=== PATIENT | female | born 1985 | race Caucasian/White ===

== ENCOUNTER 2018-11-22 08:16 | Day surgery (SDC) | payer OTHER ==
[~2018-11-22 08:16] MED LIST: Lactated Ringers 1,000 ML IV SCH
--- NOTE | 2018-11-22 08:57 | PCM.PREANE ---
Preanesthetic Assessment - Anesthesia/Transfusion/Family Hx Anesthesia History: Prior Anesthesia Without Reaction Family History of Anesthesia Reaction: No Transfusion History: No Prior Transfusion(s) Intubation History: Unknown - Review of Systems General: No Symptoms Pulmonary: No Symptoms Cardiovascular: No Symptoms Gastrointestinal: No Symptoms Neurological: No Symptoms Other: Reports: None - Physical Assessment Height: 5 ft 8.5 in Weight: 62.596 kg ASA Class: 2 Mental Status: Alert & Oriented x3 Airway Class: Mallampati = 2 Dentition: Reports: Normal Dentition Thyro-Mental Finger Breadths: 3 Mouth Opening Finger Breadths: 3 ROM/Head Extension: Full Lungs: Clear to Auscultation, Normal Respiratory Effort Cardiovascular: Regular Rate, Regular Rhythm - Lab Values: Laboratory Last Values WBC 7.88 K/uL (4.0-11.0) 11/22/18 08:46 RBC 4.69 M/uL (4.30-5.90) 11/22/18 08:46 Hgb 15.0 g/dL (12.0-16.0) 11/22/18 08:46 Hct 44.3 % (36.0-46.0) 11/22/18 08:46 MCV 94.5 fL (80.0-98.0) 11/22/18 08:46 MCH 32.0 pg (27.0-32.0) 11/22/18 08:46 MCHC 33.9 g/dL (31.0-37.0) 11/22/18 08:46 RDW Std Deviation 49.9 fl (28.0-62.0) 11/22/18 08:46 RDW Coeff of Aditya 15 % (11.0-15.0) 11/22/18 08:46 Plt Count 285 K/uL (150-400) 11/22/18 08:46 MPV 10.50 fL (7.40-12.00) 11/22/18 08:46 Nucleated RBC % 0.0 /100WBC 11/22/18 08:46 Nucleated RBCs # 0 K/uL 11/22/18 08:46 - Allergies Allergies/Adverse Reactions: Allergies Allergy/AdvReac Type Severity Reaction Status Date / Time No Known Allergies Allergy Verified 11/18/18 16:51 - Blood Blood Available: No - Anesthesia Plan Pre-Op Medication Ordered: None - Acknowledgements Anesthesia Type Planned: General Anesthesia Pt an Appropriate Candidate for the Planned Anesthesia: Yes Alternatives and Risks of Anesthesia Discussed w Pt/Guardian: Yes Pt/Guardian Understands and Agrees with Anesthesia Plan: Yes PreAnesthesia Questionnaire HEENT History: Reports: Other (See Below) Other HEENT History: 1 wisdom tooth removed under local anesthesia Gastrointestinal History: Reports: Hemorrhoids 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 [No Known Home Meds] 11/18/18 [History] - CURRENT (IN HOUSE) MEDS Current Meds: Current Medications Lactated Ringer's (Ringers, Lactated) 1,000 mls @ 100 mls/hr IV ASDIRECTED DENISA
[2018-11-22] MEDS ORDERED: Bupivacaine 0.25% 10 ML SDV ONE (08:58)
[2018-11-22] MEDS ORDERED: Fluorescein 5 ML Vial ONE (09:00)
[2018-11-22] MEDS ORDERED: Glycopyrrolate 0.2 MG/ML SDV ONE ×2 (10:02→11:50)
[2018-11-22] MEDS ORDERED: Propofol 200 MG/20 ML SDV ONE (10:02)
[2018-11-22] MEDS ORDERED: Lidocaine 2% 5 ML SDV ONE (10:02)
[2018-11-22] MEDS ORDERED: Neostigmine Methylsulfate 1 MG/ML 5 ML Syringe ONE (10:02)
[2018-11-22] MEDS ORDERED: Ondansetron 4 MG/2 ML SDV ONE (10:02)
[2018-11-22] MEDS ORDERED: Midazolam 1 MG/ML 2 ML SDV ONE (10:03)
[2018-11-22] MEDS ORDERED: fentaNYL 250 MCG/5 ML SDV ONE (10:03)
[2018-11-22] MEDS ORDERED: Phenylephrine/Normal Saline 100 MCG/ML 10 ML Syringe ONE (11:34)
[2018-11-22] MEDS ORDERED: Octyl 2-Cyanoacrylate 1 Tube ONE (12:14)
--- NOTE | 2018-11-22 12:30 | PCM.OPNOTE ---
- General Post-Op/Procedure Note Date of Surgery/Procedure: 11/22/18 Operative Procedure(s): laparoscopic right salpingectomy Findings: normal left tube and overy, right tube distended at distal end encased with adhesions incorporating the fimbria and ovary. Pre Op Diagnosis: chronic salpingitis Post-Op Diagnosis: Same Anesthesia Technique: General ET Tube Primary Surgeon: Linda Spann Anesthesia Provider: Alex Barajas Pan Pusher: Amando Olguin Pathology: right fallopian tube Fluid Replacement, Intraop: 1,500 EBL in mLs: 10 Complications: None Known Condition: Good
[2018-11-22] MEDS ORDERED: Ketorolac 30 MG/ML SDV ONE (12:31)
[2018-11-22] MEDS ORDERED: fentaNYL 100 MCG/2 ML SDV IVPUSH PRN (12:42)
--- NOTE | 2018-11-22 13:05 | PCM.POSTAN ---
POST ANESTHESIA ASSESSMENT - MENTAL STATUS Mental Status: Alert, Oriented - VITAL SIGNS Vital Signs: Last Vital Signs Temp 36.4 C 11/22/18 12:26 Pulse 54 L 11/22/18 12:57 Resp 10 L 11/22/18 12:57 BP 89/61 L 11/22/18 12:57 Pulse Ox 93 L 11/22/18 12:57 - RESPIRATORY Respiratory Status: Respiratory Rate WNL, Airway Patent, O2 Saturation Stable - CARDIOVASCULAR CV Status: Pulse Rate WNL, Blood Pressure Stable - GASTROINTESTINAL GI Status: No Symptoms - PAIN Pain Score: 3 - POST OP HYDRATION Hydration Status: Adequate & Stable - OBSERVATIONS Free Text/Narrative:: no anesthesia problems
--- NOTE | 2018-11-22 13:18 | PCM48HPAN ---
Post Anesthesia Note - EVALUATION WITHIN 48HRS OF ANESTHETIC Vital Signs in Normal Range: Yes Patient Participated in Evaluation: Yes Respiratory Function Stable: Yes Airway Patent: Yes Cardiovascular Function Stable: Yes Hydration Status Stable: Yes Pain Control Satisfactory: Yes Nausea and Vomiting Control Satisfactory: Yes Mental Status Recovered: Yes Vital Signs: Last Vital Signs Temp 36.2 C 11/22/18 13:05 Pulse 58 L 11/22/18 13:05 Resp 16 11/22/18 13:05 BP 98/60 11/22/18 13:05 Pulse Ox 99 11/22/18 13:05 - COMMENTS/OBSERVATIONS Free Text/Narrative:: no anesthesia problems
--- NOTE | 2018-11-22 18:05 | OR ---
SURGEON: Linda Spann M.D. DATE OF PROCEDURE: 11/22/2018 PREOPERATIVE DIAGNOSIS: Right chronic salpingitis. POSTOPERATIVE DIAGNOSIS: Right chronic salpingitis. PROCEDURE: Laparoscopic right salpingectomy. ANESTHESIA: General endotracheal. ESTIMATED BLOOD LOSS: Less than 10 mL. FLUIDS: 1500 mL crystalloid. FINDINGS: Normal-appearing uterus, left tube and ovary. The right ovary and fimbriated end of the right tube were encased in adhesions. COMPLICATIONS: None known. DISPOSITION: Stable to recovery. BRIEF HISTORY: This is a 33-year-old female. She presents with a history of 2 right-sided ectopic pregnancies, both treated conservatively. However, after this ectopic , she has had persistent pain in the right tube and requests due to recurrent right-sided ectopics that the tube be removed with risks discussed including bleeding, infection, injury to bowel, bladder, blood vessels or other organs, risk of thromboembolic event, risk of anesthesia. Understanding all these risks, she does desire to proceed. DESCRIPTION OF PROCEDURE: With the patient in the low dorsal lithotomy position, under adequate general endotracheal anesthesia, the abdomen and perineum were prepped and draped in the usual fashion for laparoscopic surgery. The bladder had been drained with a straight catheter. SCDs were in place and an appropriate time-out was held. Bimanual examination revealed a mobile 8-week size uterus. Speculum was placed in the vagina. Hulka tenaculum was placed on the cervix. The wafer machine operator's gloves were changed. Attention was then turned abdominally where 3 mL of 0.25% Marcaine were injected inferior to the umbilicus. A vertical incision was made within the umbilicus 5 mm in length. The anterior abdominal wall was elevated. Veress needle was inserted and the CO2 was initiated with an opening pressure of 3 mmHg. CO2 was insufflated to develop an adequate pneumoperitoneum of 13 mmHg. The 5-mm port was placed without difficulty. The laparoscope was placed in the abdominal cavity. There was no evidence of any trauma from the laparoscope placement site. Two additional ports were placed 2 cm medial and cephalad from the anterior superior iliac spine on the right and the left under direct visualization in a similar fashion. The uterus was elevated. The left tube and ovary were inspected and were normal. The right tube and ovary were inspected and adhesions were noted. Using the Harmonic Brannon, I carefully lysed the adhesions between the fimbriated tip of the tube and the ovary and then was able to separate the fimbria from the ovary and proceed with the Harmonic proximally along the mesosalpinx to the proximal tube which was then transected. The tube was removed via the 5-mm port and the pelvis was inspected under low pressure. There were no areas of bleeding. Therefore, the abdomen was desufflated. The ports were removed. The skin was closed with subcuticular suture of 4-0 Monocryl followed by Dermabond. The Hulka tenaculum was removed. The cervix was inspected and was hemostatic. All the instruments were removed from the vagina. Final sponge, needle, and instrument counts were reported as correct. There were no known complications. The patient was transferred to recovery in good condition. SHIV CRUZ /[id number]
== END 2018-11-22 13:30 | disposition home or self-care (01) ==
LOC: MW.SDS 08:16
PROVIDERS: ATTEND Obstetrics & Gynecology
DX: N73.6 Female pelvic peritoneal adhesions (postinfective) (principal); N70.11 Chronic salpingitis; F17.210 Nicotine dependence, cigarettes, uncomplicated; Z87.59 Personal history of other complications of pregnancy, childbirth and the puerperium
CPT/HCPCS: 00840; 36415; 84703; 85027; A9270-GY; J2001; J2250; J2370; J2405; J2704; J3010; J3490; J7120